=== PATIENT | male | born 1935 | race Caucasian/White ===

== ENCOUNTER 2016-07-02 10:42 | Emergency (ER) | payer MEDICARE, BC ==
--- OUTSIDE RECORDS SUMMARY | 2016-07-02 11:23 | XMS REPORT | Continuity of Care Document ---
:1935 Author Organization [facility] ([facility]) Address [address] [place] [address] Phone [phone] Care Team Providers Name Role Phone Pancho Moses Primary Care Provider [phone] Source Comments This disclosure is being made pursuant to the Care Everywhere program, applicable federal and state laws, and may not contain all informaitonavailable regarding this patient.[facility] ([facility]) Active Allergies and Adverse Reactions Allergen Noted Date Severity Reactions Comments Penicillins 08/09/2014 Unknown Current Medications Prescription Sig. Disp. Refills Start Date End Date Status doxazosin 4 mg tablet Take 4 mg by Active mouth daily allopurinol 300 mg Take 300 mg by Active tablet mouth daily nitroglycerin 0.[address] 0.4 mg Active tablet under the tongue every 5 minutes as needed clindamycin 1 % topical as needed. 07/29/2015 Active solution triamcinolone 0.025 % as needed. 07/30/2015 Active ointment losartan-hydrochlorothi Take 1 tablet by 90 tablet 3 09/09/2015 Active azide 50-12.5 mg per mouth daily. tablet digoxin 125 mcg tablet Take 1 tablet 90 tablet 2 10/14/2015 Active (125 mcg total) by mouth daily. metoPROLol succinate Take 1 tablet 90 tablet 3 10/16/2015 Active 100 mg XL tablet (100 mg total) by mouth daily. warfarin 5 mg tablet Take 7.5 mg Mon, Active Fri; take 5 mg all other days of the week OR as directed by [facility] Active Problems Problem Noted Date Chronic atrial fibrillation 07/17/2014 Overview: Formatting of this note may be different from the original. 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 CAD (coronary artery disease) 07/17/2014 [facility] (current) use of anticoagulants 06/20/2014 Overview: ANTICOAGULATION PROFILE: Primary Number: [phone] (W) [phone] (H) LOCAL LAB: [facility] Name: Phone: Fax: Indication for Warfarin: Atrial Fibrillation Target INR Range: 2.0-3.0 Duration of Warfarin Therapy: Indefinite Date Warfarin Initiated: Alcohol use: No Essential (primary) hypertension 08/10/2013 Most Recent Encounters Date Type Specialty Providers Description 06/25/2016 Telephone Pharmacy Charisse Shell Dx: Chronic a-fib (Primary Dx) 06[facility] skilled operator (current) use of anticoagulants (Primary Dx) [facility] multi skilled operator (current) use of anticoagulants (Primary Dx) 05/25/2016 Telephone Pharmacy Marilyn Bazan Dx: Chronic a-fib 05/25/2016 Telephone Pharmacy Marilyn Bazan [facility] multi skilled operator (current) use of anticoagulants (Primary Dx) 04/27/2016 Telephone Pharmacy Charisse Shell Dx: Chronic a-fib 04/13/2016 Telephone Pharmacy Kia Dai, [facility] Dx: multi skilled operator (current) use of anticoagulants (Primary Dx) 04/13/2016 Telephone Pharmacy Marilyn Bazan Dx: Chronic a-fib Social History Tobacco Use Types Packs/Day Years Used Date Never Smoker Smokeless Tobacco: Never Used Alcohol Use Drinks/Week oz/Week Comments No Last Filed Vital Signs Vital Sign Reading Time Taken Blood Pressure 102/60 08/13/2015 12:27 PM CDT Pulse 60 08/13/2015 12:27 PM CDT Temperature - - Respiratory Rate - - Height 1.753 m (5' 9.02") 08/13/2015 12:27 PM CDT Weight 109.7 kg (241 lb 13.5 oz) 08/13/2015 12:27 PM CDT Body Mass Index 35.7 08/13/2015 12:27 PM CDT Oxygen Saturation - - Plan of Care Date Type Specialty Providers Description 08/25/2016 Appointment [facility] V[facility] Liane Valenzuela MD Dx: Chronic a-fib [address] [place] [address] [phone] (Fax) Health Maintenance Due Date Last Done Comments Hepatitis B Vaccine (1 of 3 - Primary Series) 1935 Tdap Vaccine 1945 Lipid Disorder Screening 02/27/1952 Td Vaccine 02/27/1952 Colonoscopy 1984 Zoster Vaccine 1994 Pneumococcal Vaccine (1 of 2 - PCV13) 1999 Influenza Vaccine: Seasonal (Season Ended) 2016 Results from Last 3 Months EXTERNAL INR (06/22/2016)Only the most recent of4 resultswithin the time period is included. Component Value Range Ext INR 2.48
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
[2016-07-02 12:27] LABS: Hematocrit 42.6 % (42.0-52.0); Hemoglobin 13.7 gm/dL (13.5-18.0); Mean Cell Volume 90.4 fl (78-100); Mean Corpuscular Hemoglobin 29.1 pg (27-31); Mean Corpuscular Hgb Conc 32.2 g/dl (32-36); Platelet Count 167 K/mm3 (150-450); Red Blood Count 4.71 M/mm3 (4.7-6.0); Red Cell Distribution Width 14.8 % (11.5-14.0); White Blood Count 12.8 K/mm3 (4.0-10.5)
[2016-07-02 12:28] LABS: Total Cells Counted 100
[2016-07-02 12:45] LABS: Prothrombin Time (Patient) 21.2 Seconds (9.4-11.4)
[2016-07-02 12:46] LABS: Lymphocyte 4 % (20-51); Monocyte 12 % (0-9); Neutrophil 84 % (42-75); Neutrophil # 10.8 K/mm3 (1.3-6.0); Platelet Estimate Normal (NORMAL)
[2016-07-02 12:47] LABS: Albumin * 3.3 gm/dl (3.4-5.0); Anion Gap 10.9 mmol/L (6.8-13.8); BUN/Creatinine Ratio 13.5 (9.0-21.6); Bilirubin, Total 1.4 mg/dL (0.0-1.1); Ca. Corrected For Albumin 9.2 mg/dL (8.4-10.2); Dohle Bodies 1+; Hypersegmented Polys 1+; Potassium 3.9 mmol/L (3.4-4.6); Total Protein 7.8 gm/dL (6.2-8.2)
[2016-07-02 12:50] LABS: INR 2.04 INR (0.90-1.10)
[2016-07-02 12:52] VITALS: BP 129/66
[2016-07-02 12:58] LABS: Uric Acid 9.1 mg/dL (2.6-7.2)
== END 2016-07-02 13:38 | disposition home or self-care (01) ==
LOC: ER 10:42
DX: M10.9 Gout, unspecified (principal); I10 Essential (primary) hypertension